=== PATIENT | female | born 1940 | race Caucasian/White ===

== ENCOUNTER 2018-06-18 09:31 | Day surgery (SDC) | payer BC, MEDICARE, OTHER ==
[~2018-06-18 09:31] MED LIST: PROPOFOL 500 MG/50 ML EMU IV ONE
[2018-06-18] MEDS ORDERED: ONDANSETRON HCL 4 MG/2 ML SOL ONE (10:50)
[2018-06-18 11:03] VITALS: RESP 16
[2018-06-18 11:31] VITALS: BP 101/67; PULSE 79; TEMP 97.6; O2SAT 98
== END 2018-06-18 11:45 | disposition home or self-care (01) | DRG 951 ==
LOC: SURG 09:31
PROVIDERS: ATTEND Surgery
DX: Z12.11 Encounter for screening for malignant neoplasm of colon (principal); Z86.010 Personal history of colon polyps
CPT/HCPCS: J2405; J2704